=== PATIENT | male | born 1930 | race African-American/Black ===

== ENCOUNTER 2019-05-12 12:37 | Emergency (ER) | payer MEDICARE, MEDICAID ==
[~2019-05-12] VITALS: Ht 185.4 cm; Wt 97.0 kg
[~2019-05-12 12:37] MED LIST: AMLO10TA80 PO
[2019-05-12] MEDS ORDERED: TETANUS, DIPHTHERIA, PERTUSSIS VAC/PF 0.5ML (>7YR OLD) IM ONE (13:00)
[2019-05-12 14:26] LABS: BASOPHILS % 0.5 % (0.0-2.0); EOSINOPHILS % 2.9 % (0.0-5.0); HEMATOCRIT. 36.5 % (42.0-52.0); HEMOGLOBIN. 12.1 g/dL (14.0-18.0); LYMPHOCYTES % 40.6 % (20.0-50.0); MEAN CORPUSCULAR HEMOGLOBIN 30.5 pg (28.0-32.0); MEAN CORPUSCULAR VOLUME 91.9 fL (80.0-94.0); MEAN PLATELET VOLUME 9.1 fl (7.4-10.4); MONOCYTES % 7.1 % (2.0-8.0); NEUTROPHILS % 48.9 % (40.0-76.0); PLATELET 108 x1000/uL (130-400); RED BLOOD CELL COUNT 3.97 mill/uL (4.7-6.1); RED CELL DISTRIBUTION WIDTH 12.6 % (11.6-14.6)
[2019-05-12 14:30] LABS: CHLORIDE 110 mEq/L (98-107)
[2019-05-12 14:32] LABS: INR 1.1; PROTHROMBIN TIME 11.6 sec (9.6-11.0)
[2019-05-12 15:45] LABS: CLARITY URINE CLEAR (CLEAR); COLOR URINE YELLOW (YELLOW); KETONES URINE NEGATIVE (NEGATIVE); LEUKOCYTE ESTERASE URINE 3+ (NEGATIVE); NITRITE URINE POSITIVE (NEGATIVE); OCCULT BLOOD URINE NEGATIVE (NEGATIVE); PROTEIN URINE NEGATIVE (NEGATIVE); SPECIFIC GRAVITY URINE 1.009 (1.005-1.030)
[2019-05-12 18:06] VITALS: BP 183/100
== END 2019-05-12 18:09 | disposition home or self-care (01) ==
LOC: ER 12:37 → EDBEDREQTM 16:39 → EDBEDREQ 16:39 → CANBEDREQ 18:00 → ER 18:09
DX: I21.4 Non-ST elevation (NSTEMI) myocardial infarction (principal); S01.81XA Laceration without foreign body of other part of head, initial encounter; R55 Syncope and collapse; S61.411A Laceration without foreign body of right hand, initial encounter; I10 Essential (primary) hypertension; E03.9 Hypothyroidism, unspecified; Y08.89XA Assault by other specified means, initial encounter; W01.0XXA Fall on same level from slipping, tripping and stumbling without subsequent striking against object, initial encounter; Y93.89 Activity, other specified; Y92.481 Parking lot as the place of occurrence of the external cause
CPT/HCPCS: 12011; 36415; 70486; 73130; 84484; 90471; 90715; 93005; 99284